=== PATIENT | female | born 1970 | race Hispanic/Latino ===

== ENCOUNTER 2023-03-01 14:09 | Emergency (ER) | payer SELFPAY ==
[2023-03-01 14:26] VITALS: BP 133/96; PULSE 99; RESP 18; TEMP 37.2; O2SAT 97
--- NOTE | 2023-03-01 15:39 | ED.URI ---
HPI - URI/Sore Throat General Chief Complaint: Upper Respiratory Infection Stated Complaint: cough,sore throat Time Seen by Provider: 03/01/23 15:29 Source: patient and RN notes reviewed Mode of arrival: ambulatory Limitations: no limitations History of Present Illness HPI Narrative: Patient presents today with a one-week history of cough, sore throat, congestion, headache, right ear pain. Denies fever or shortness of breath. She currently rates her pain 10/10 and has been taking TheraFlu, NyQuil, and Mucinex with mild relief. Related Data Home Medications Medication Instructions Recorded Confirmed alogliptin 12.5 mg tablet (Nesina) 12.5 mg PO DAILY 03/01/23 03/01/23 levothyroxine 125 mcg tablet 125 mcg PO DAILY 03/01/23 03/01/23 metformin 500 mg tablet 500 mg PO BID 03/01/23 03/01/23 Allergies Allergy/AdvReac Type Severity Reaction Status Date / Time No Known Allergies Allergy Verified 03/01/23 15:05 Review of Systems Review of Systems: CONSTITUTIONAL: Denies body aches, fever, chills, or sweats. EYES: Denies visual changes, redness, or discharge. ENT: Denies rhinorrhea.+ sore throat, congestion, right ear pain CARDIOVASCULAR: Denies chest pain, palpitations, or edema. RESPIRATORY: Denies dyspnea.+ cough GASTROINTESTINAL: Denies abdominal pain, nausea, vomiting, or diarrhea. GENITOURINARY: Denies dysuria or hematuria. SKIN: Denies rash, itching, or wounds. MUSCULOSKELETAL: Denies back pain, joint pain, or myalgia. NEUROLOGIC: Denies numbness, tingling, or weakness.+ headache PSYCH: Denies depression or anxiety. [facility] Past Medical History Medical History (Updated 03/01/23 @ 15:46 by Vonnie Hatch, WALDO, ) Diabetes Surgical History Surgical History (Updated 03/01/23 @ 15:42 by Vonnie Hatch, [employer], ) History of cholecystectomy Comments At time of signature, I have reviewed and agree with nursing past medical, surgical, social and family history unless otherwise noted. Please see nursing chart for further information. There is no relevant family history pertinent to the presenting complaint Exam Narrative: GENERAL: Mildly ill-appearing, well-nourished, and in no acute distress. HEAD: Normocephalic, atraumatic. EYES: EOMI. No redness or drainage. Conjunctivae normal. ENT: Mucous membranes pink and moist. Nares clear. No rhinorrhea. TMs normal bilaterally. Throat normal. Uvula midline. NECK: Normal AROM. Supple. No lymphadenopathy. CHEST: No respiratory distress. Crackles in the right lower lobe, otherwise clear. Harsh frequent cough noted. HEART: Regular rate and rhythm. No murmur appreciated. Normal peripheral pulses. EXTREMITIES: Normal range of motion. No edema. SKIN: Warm, dry, no rash. Capillary refill normal. Normal skin turgor. NEURO: No focal deficits. Alert and oriented x3. Gait steady. PSYCH: Normal affect. No signs of depression or anxiety. Course Course Level of Care: Express Care Visit Vital Signs Vital signs: Vital Signs Temperature 99.0 F 03/01/23 14:26 Pulse Rate 99 03/01/23 14:26 Respiratory Rate 18 03/01/23 14:26 Blood Pressure 133/96 H 03/01/23 14:26 Pulse Oximetry 97 03/01/23 14:26 Oxygen Delivery Room Air 03/01/23 14:26 Temperature 99.0 F 03/01/23 14:26 Pulse Rate 99 03/01/23 14:26 Respiratory Rate 18 03/01/23 14:26 Blood Pressure 133/96 H 03/01/23 14:26 Pulse Oximetry 97 03/01/23 14:26 Oxygen Delivery Room Air 03/01/23 14:26 Reviewed MDM - URI/Sore Throat MDM Narrative Medical decision making narrative: Strep screen negative. Culture pending. Patient will be treated for her upper respiratory infection with azithromycin and prednisone. She has been notified that the prednisone may raise her blood sugar for the duration of her treatment. Anticipatory guidance given. Differential Diagnosis Differential diagnosis: Likely upper respiratory infection, otitis media, sinusitis, viral infectio
== END 2023-03-01 15:53 | disposition home or self-care (01) ==
PROVIDERS: Emergency Provider Nurse Practitioner; PCP Internal Medicine Gastroenterology
DX: J40 Bronchitis, not specified as acute or chronic (principal); J06.9 Acute upper respiratory infection, unspecified; E11.9 Type 2 diabetes mellitus without complications
CPT/HCPCS: 87081; 87880; 99203; G0463